=== PATIENT | male | born 1945 | race Caucasian/White ===

== ENCOUNTER 2017-05-28 22:11 | Inpatient (IN) | payer MEDICARE, OTHER ==
[~2017-05-28] VITALS: Ht 170.2 cm; Wt 66.0 kg
[~2017-05-28 22:11] MED LIST: LISI5TAB7 PO; METF10002 PO
[2017-05-28] MEDS ORDERED: SODIUM CHLORIDE 0.9% 1,000 ML IV ONE (22:30)
[2017-05-28] MEDS ORDERED: SODIUM CHLORIDE FLUSH 10ML SYR IVF ONE (22:30)
[2017-05-28 23:06] LABS: HEMATOCRIT 43.4 % (39.2-51.8); HEMOGLOBIN 14.4 g/dL (13.7-18.0); WHITE BLOOD COUNT 8.8 x10^3/uL (3.4-10)
[2017-05-28 23:17] LABS: ASPARTATE AMINO TRANSFERASE 24 U/L (15-37); BLOOD UREA NITROGEN 27 mg/dL (7-18)
[2017-05-28 23:23] LABS: IS PT STATUS REG ER OR PRE ER? YES
[2017-05-28] MEDS ORDERED: CLOP75TA52 PO (23:53)
[2017-05-28] MEDS ORDERED: GLIM2TAB2 PO (23:53)
[2017-05-28] MEDS ORDERED: ATOR-2 PO (23:53)
[2017-05-28] MEDS ORDERED: METO50TA82 PO (23:53)
[2017-05-28] MEDS ORDERED: LISI-170 PO (23:53)
[2017-05-28] MEDS ORDERED: AMLO10TA2 PO (23:53)
[2017-05-28] MEDS ORDERED: ALLO300T PO (23:53)
[2017-05-29] VITALS (7 sets, daily range): BP systolic 99–121; BP diastolic 68–80
[2017-05-29] MEDS: LEVETIRACETAM 500 MG in SODIUM CHLORIDE 0.9% 100 ML IV SCH ×2 (00:34→13:09)
[2017-05-29] MEDS ORDERED: ONDANSETRON 2MG/ML, 2ML IVPush PRN (04:00)
[2017-05-29 04:39] LABS: HEMATOCRIT 39.6 % (39.2-51.8); HEMOGLOBIN 13.1 g/dL (13.7-18.0); WHITE BLOOD COUNT 7.4 x10^3/uL (3.4-10)
[2017-05-29 04:50] LABS: BLOOD UREA NITROGEN 22 mg/dL (7-18)
[2017-05-29 04:54] LABS: ASPARTATE AMINO TRANSFERASE 21 U/L (15-37)
[2017-05-29] MEDS: SODIUM CHLORIDE 0.9% 1,000 ML IV SCH ×3 (05:52→22:36)
[2017-05-29] MEDS: INSULIN ASPART 100 UNITS/ML, PEN SQ-INSULIN SCH ×4 (07:00→21:18)
[2017-05-29] MEDS ORDERED: MORPHINE SULFATE 4 MG/ML, 1ML IV PRN (07:00)
[2017-05-29] MEDS: AMLODIPINE 5 MG TABLET PO SCH (09:00)
[2017-05-29] MEDS ORDERED: METOPROLOL TARTRATE 50 MG TABLET PO SCH (09:00)
[2017-05-29] MEDS: ALLOPURINOL 300 MG TABLET PO SCH ×2 (09:00→10:39)
[2017-05-29] MEDS: GLIMEPIRIDE 1 MG TABLET PO SCH ×2 (09:00→10:39)
[2017-05-29] MEDS ORDERED: LISINOPRIL 20 MG TABLET PO SCH (09:00)
[2017-05-29] MEDS: HYDROcodone/APAP 5/325 TABLET PO PRN (21:09)
[2017-05-29] MEDS: ATORVASTATIN 80 MG TABLET PO SCH (21:10)
[2017-05-30] MEDS: LEVETIRACETAM 500 MG in SODIUM CHLORIDE 0.9% 100 ML IV SCH ×2 (03:07→12:28)
[2017-05-30 04:57] LABS: BLOOD UREA NITROGEN 15 mg/dL (7-18)
[2017-05-30] MEDS: INSULIN ASPART 100 UNITS/ML, PEN SQ-INSULIN SCH ×4 (07:00→21:00)
[2017-05-30] MEDS: ALLOPURINOL 300 MG TABLET PO SCH (08:13)
[2017-05-30] MEDS: AMLODIPINE 5 MG TABLET PO SCH (08:13)
[2017-05-30] MEDS: GLIMEPIRIDE 1 MG TABLET PO SCH (08:13)
[2017-05-30] MEDS: SODIUM CHLORIDE 0.9% 1,000 ML IV SCH (09:39)
[2017-05-30 14:04] VITALS: BP 117/85
[2017-05-30] MEDS: METOPROLOL TARTRATE 50 MG TABLET PO SCH (17:31)
[2017-05-30] MEDS: ATORVASTATIN 80 MG TABLET PO SCH (21:21)
[2017-05-31] MEDS: LEVETIRACETAM 500 MG in SODIUM CHLORIDE 0.9% 100 ML IV SCH ×2 (00:58→13:53)
[2017-05-31 01:03] VITALS: BP 152/87
[2017-05-31 07:33] VITALS: BP 135/91
[2017-05-31] MEDS: GLIMEPIRIDE 1 MG TABLET PO SCH (08:38)
[2017-05-31] MEDS: AMLODIPINE 5 MG TABLET PO SCH (08:39)
[2017-05-31] MEDS: METOPROLOL TARTRATE 50 MG TABLET PO SCH ×2 (08:39→19:24)
[2017-05-31] MEDS: ALLOPURINOL 300 MG TABLET PO SCH (08:39)
[2017-05-31] MEDS: INSULIN ASPART 100 UNITS/ML, PEN SQ-INSULIN SCH ×4 (09:00→23:09)
[2017-05-31] MEDS ORDERED: FOLIC ACID 1 MG TABLET PO SCH (09:00)
[2017-05-31] MEDS ORDERED: CYANOCOBALAMIN 1,000 MCG TABLET PO SCH (09:00)
[2017-05-31 13:03] VITALS: BP 127/76
[2017-05-31 20:00] VITALS: BP 122/83
[2017-05-31] MEDS: ATORVASTATIN 80 MG TABLET PO SCH (23:08)
[2017-06-01] MEDS: LEVETIRACETAM 500 MG in SODIUM CHLORIDE 0.9% 100 ML IV SCH ×2 (01:24→12:52)
[2017-06-01 02:00] VITALS: BP 122/84
[2017-06-01 06:09] LABS: HEMATOCRIT 41.1 % (39.2-51.8); HEMOGLOBIN 13.7 g/dL (13.7-18.0); WHITE BLOOD COUNT 6.5 x10^3/uL (3.4-10)
[2017-06-01 06:28] LABS: BLOOD UREA NITROGEN 20 mg/dL (7-18)
[2017-06-01] MEDS: METOPROLOL TARTRATE 50 MG TABLET PO SCH ×2 (06:48→18:08)
[2017-06-01 07:02] VITALS: BP 137/88
[2017-06-01] MEDS: INSULIN ASPART 100 UNITS/ML, PEN SQ-INSULIN SCH ×4 (08:15→21:14)
[2017-06-01] MEDS: FOLIC ACID 1 MG TABLET PO SCH (08:59)
[2017-06-01] MEDS: GLIMEPIRIDE 1 MG TABLET PO SCH (08:59)
[2017-06-01] MEDS: AMLODIPINE 5 MG TABLET PO SCH (08:59)
[2017-06-01] MEDS: ALLOPURINOL 300 MG TABLET PO SCH (09:00)
[2017-06-01] MEDS: CYANOCOBALAMIN 1,000 MCG TABLET PO SCH (09:00)
[2017-06-01 12:50] VITALS: BP 118/77
[2017-06-01 20:00] VITALS: BP 145/88
[2017-06-01] MEDS: ATORVASTATIN 80 MG TABLET PO SCH (21:14)
[2017-06-02] MEDS: LEVETIRACETAM 500 MG in SODIUM CHLORIDE 0.9% 100 ML IV SCH ×3 (00:05→23:46)
[2017-06-02 02:00] VITALS: BP 141/90
[2017-06-02] MEDS: INSULIN ASPART 100 UNITS/ML, PEN SQ-INSULIN SCH ×4 (06:10→21:28)
[2017-06-02] MEDS: METOPROLOL TARTRATE 50 MG TABLET PO SCH ×2 (06:12→16:56)
[2017-06-02 06:52] VITALS: BP 129/88
[2017-06-02] MEDS: FOLIC ACID 1 MG TABLET PO SCH (09:00)
[2017-06-02] MEDS: CYANOCOBALAMIN 1,000 MCG TABLET PO SCH (09:00)
[2017-06-02] MEDS: ALLOPURINOL 300 MG TABLET PO SCH (09:00)
[2017-06-02] MEDS: GLIMEPIRIDE 1 MG TABLET PO SCH (09:00)
[2017-06-02] MEDS: AMLODIPINE 5 MG TABLET PO SCH (09:00)
[2017-06-02 12:35] VITALS: BP 115/78
[2017-06-02 12:53] LABS: BLOOD UREA NITROGEN 20 mg/dL (7-18)
[2017-06-02] MEDS ORDERED: ACETAMINOPHEN 650 MG/20.3 ML UDC PO PRN (15:00)
[2017-06-02] MEDS ORDERED: BISACODYL 10 MG SUPP PR PRN (15:00)
[2017-06-02] MEDS ORDERED: BUPIVACAINE/PF 0.5% ONE (17:11)
[2017-06-02] MEDS ORDERED: BACITRACIN 50,000 UNIT ONE (17:12)
[2017-06-02] MEDS ORDERED: THROMBIN 5,000 UNIT VIAL TP ONE (17:12)
[2017-06-02] MEDS ORDERED: EPINEPHRINE 1 MG/ML, 1ML ONE (17:12)
[2017-06-02] MEDS ORDERED: CEFUROXIME 1.5 GM ONE ×2 (17:17→17:26)
[2017-06-02] MEDS ORDERED: ONDANSETRON 2MG/ML, 2ML ONE (17:26)
[2017-06-02] MEDS ORDERED: NEOSTIGMINE 1 MG/ML, 10ML ONE (17:26)
[2017-06-02] MEDS ORDERED: GLYCOPYRROLATE 0.2MG/1ML, 5ML ONE (17:26)
[2017-06-02] MEDS ORDERED: SUCCINYLCHOLINE 20 MG/ML, 10ML ONE (17:26)
[2017-06-02] MEDS ORDERED: METOPROLOL 1 MG/ML, 5ML ONE (17:26)
[2017-06-02] MEDS ORDERED: ROCURONIUM 10 MG/ML ONE (17:26)
[2017-06-02] MEDS ORDERED: EPHEDRINE 50 MG/ML, 1ML ONE (17:26)
[2017-06-02] MEDS ORDERED: LIDOCAINE 2%, 10ML ONE (17:26)
[2017-06-02] MEDS ORDERED: FENTANYL PF 100 MCG/2ML ONE (17:26)
[2017-06-02] MEDS ORDERED: PROPOFOL 10 MG/ML, 20ML ONE (17:26)
[2017-06-02] MEDS ORDERED: HYDROmorphone 1 MG/ML, 1ML IV PRN (18:00)
[2017-06-02] MEDS ORDERED: ALBUTEROL SULFATE 2.5 MG/3 ML NPPB PRN (18:00)
[2017-06-02] MEDS ORDERED: LABETALOL 5MG/ML, 20ML IV PRN (18:00)
[2017-06-02] MEDS ORDERED: hydrALAzine 20 MG/ML, 1ML IV PRN (18:00)
[2017-06-02] MEDS ORDERED: METOPROLOL 1 MG/ML, 5ML IV PRN (18:00)
[2017-06-02] MEDS ORDERED: ACETAMINOPHEN 325 MG TABLET PO PRN (18:00)
[2017-06-02] MEDS ORDERED: FENTANYL PF 100 MCG/2ML IV PRN (18:00)
[2017-06-02] MEDS ORDERED: EPHEDRINE 50 MG/ML, 1ML IVPush PRN (18:00)
[2017-06-02] MEDS ORDERED: ONDANSETRON 2MG/ML, 2ML IVPush PRN (18:00)
[2017-06-02] MEDS: CEFAZOLIN PMX 1GM/50ML 50 ML IVPB SCH ×2 (19:22→22:59)
[2017-06-02] MEDS ORDERED: HYDROmorphone 1 MG/ML, 1ML ONE (20:29)
[2017-06-02] MEDS: HYDROmorphone 2 MG/ML, 1ML IVPush PRN (20:32)
[2017-06-02] MEDS: ATORVASTATIN 80 MG TABLET PO SCH (21:28)
[2017-06-03] MEDS: HYDROmorphone 2 MG/ML, 1ML IVPush PRN (04:21)
[2017-06-03 04:42] LABS: HEMATOCRIT 41.7 % (39.2-51.8); WHITE BLOOD COUNT 7.8 x10^3/uL (3.4-10)
[2017-06-03 04:58] LABS: BLOOD UREA NITROGEN 16 mg/dL (7-18)
[2017-06-03] MEDS: METOPROLOL TARTRATE 50 MG TABLET PO SCH ×2 (05:31→18:34)
[2017-06-03] MEDS: INSULIN ASPART 100 UNITS/ML, PEN SQ-INSULIN SCH ×4 (07:00→21:00)
[2017-06-03] MEDS: ALLOPURINOL 300 MG TABLET PO SCH (10:59)
[2017-06-03] MEDS: AMLODIPINE 5 MG TABLET PO SCH (10:59)
[2017-06-03] MEDS: GLIMEPIRIDE 1 MG TABLET PO SCH (10:59)
[2017-06-03] MEDS: SENNA/DOCUSATE TABLET PO SCH (10:59)
[2017-06-03] MEDS: CYANOCOBALAMIN 1,000 MCG TABLET PO SCH (10:59)
[2017-06-03] MEDS: FOLIC ACID 1 MG TABLET PO SCH (11:00)
[2017-06-03] MEDS: LEVETIRACETAM 500 MG in SODIUM CHLORIDE 0.9% 100 ML IV SCH ×2 (12:28→23:44)
[2017-06-03] MEDS: ATORVASTATIN 80 MG TABLET PO SCH (21:17)
[2017-06-04 04:38] LABS: HEMATOCRIT 38.5 % (39.2-51.8); HEMOGLOBIN 12.9 g/dL (13.7-18.0); WHITE BLOOD COUNT 6.8 x10^3/uL (3.4-10)
[2017-06-04 04:48] LABS: BLOOD UREA NITROGEN 22 mg/dL (7-18)
[2017-06-04 04:51] LABS: ASPARTATE AMINO TRANSFERASE 17 U/L (15-37)
[2017-06-04] MEDS: METOPROLOL TARTRATE 50 MG TABLET PO SCH ×2 (06:00→19:19)
[2017-06-04] MEDS: INSULIN ASPART 100 UNITS/ML, PEN SQ-INSULIN SCH ×4 (07:00→23:05)
[2017-06-04] MEDS: CYANOCOBALAMIN 1,000 MCG TABLET PO SCH (08:46)
[2017-06-04] MEDS: GLIMEPIRIDE 1 MG TABLET PO SCH (08:46)
[2017-06-04] MEDS: AMLODIPINE 5 MG TABLET PO SCH (08:46)
[2017-06-04] MEDS: SENNA/DOCUSATE TABLET PO SCH (08:47)
[2017-06-04] MEDS: FOLIC ACID 1 MG TABLET PO SCH (08:47)
[2017-06-04] MEDS: ALLOPURINOL 300 MG TABLET PO SCH (08:47)
[2017-06-04] MEDS: LEVETIRACETAM 500 MG in SODIUM CHLORIDE 0.9% 100 ML IV SCH (13:17)
[2017-06-04 16:14] VITALS: BP 128/82
[2017-06-04 20:32] VITALS: BP 125/82
[2017-06-04] MEDS: ATORVASTATIN 80 MG TABLET PO SCH (23:59)
[2017-06-05] MEDS: LEVETIRACETAM 500 MG in SODIUM CHLORIDE 0.9% 100 ML IV SCH ×2 (00:46→13:19)
[2017-06-05 01:38] VITALS: BP 127/87
[2017-06-05 05:20] LABS: HEMATOCRIT 39.2 % (39.2-51.8); HEMOGLOBIN 13.3 g/dL (13.7-18.0); WHITE BLOOD COUNT 7.6 x10^3/uL (3.4-10)
[2017-06-05 05:32] LABS: BLOOD UREA NITROGEN 20 mg/dL (7-18)
[2017-06-05 06:20] VITALS: BP 133/79
[2017-06-05] MEDS: INSULIN ASPART 100 UNITS/ML, PEN SQ-INSULIN SCH ×4 (06:41→21:00)
[2017-06-05] MEDS: METOPROLOL TARTRATE 50 MG TABLET PO SCH ×2 (06:42→17:39)
[2017-06-05] MEDS: GLIMEPIRIDE 1 MG TABLET PO SCH (09:00)
[2017-06-05] MEDS: CYANOCOBALAMIN 1,000 MCG TABLET PO SCH (09:00)
[2017-06-05] MEDS: FOLIC ACID 1 MG TABLET PO SCH (09:00)
[2017-06-05] MEDS: SENNA/DOCUSATE TABLET PO SCH (09:00)
[2017-06-05] MEDS: ALLOPURINOL 300 MG TABLET PO SCH (09:00)
[2017-06-05] MEDS: ONDANSETRON 2MG/ML, 2ML IVPush PRN ×2 (09:46→17:40)
[2017-06-05] MEDS: AMLODIPINE 5 MG TABLET PO SCH (09:52)
[2017-06-05 14:30] VITALS: BP 120/86
[2017-06-05 20:58] VITALS: BP 133/88
[2017-06-05] MEDS: ATORVASTATIN 80 MG TABLET PO SCH (21:23)
[2017-06-06] MEDS: LEVETIRACETAM 500 MG in SODIUM CHLORIDE 0.9% 100 ML IV SCH ×2 (00:46→12:48)
[2017-06-06 01:27] VITALS: BP 125/79
[2017-06-06] MEDS: MAGNESIUM HYDROXIDE 8%, 30ML UDC PO PRN (05:05)
[2017-06-06] MEDS: METOPROLOL TARTRATE 50 MG TABLET PO SCH ×2 (05:06→17:15)
[2017-06-06 05:15] VITALS: BP 124/77
[2017-06-06] MEDS: INSULIN ASPART 100 UNITS/ML, PEN SQ-INSULIN SCH ×4 (05:34→21:00)
[2017-06-06 07:38] VITALS: BP 120/79
[2017-06-06] MEDS: CYANOCOBALAMIN 1,000 MCG TABLET PO SCH (08:29)
[2017-06-06] MEDS: GLIMEPIRIDE 1 MG TABLET PO SCH (08:29)
[2017-06-06] MEDS: AMLODIPINE 5 MG TABLET PO SCH (08:29)
[2017-06-06] MEDS: SENNA/DOCUSATE TABLET PO SCH (08:29)
[2017-06-06] MEDS: FOLIC ACID 1 MG TABLET PO SCH (08:29)
[2017-06-06] MEDS: ALLOPURINOL 300 MG TABLET PO SCH (08:30)
[2017-06-06 16:52] VITALS: BP 126/81
[2017-06-06 18:38] VITALS: BP 108/64
[2017-06-06] MEDS: ATORVASTATIN 80 MG TABLET PO SCH (22:34)
[2017-06-07] MEDS: LEVETIRACETAM 500 MG in SODIUM CHLORIDE 0.9% 100 ML IV SCH ×2 (00:14→13:11)
[2017-06-07 02:10] VITALS: BP 123/86
[2017-06-07] MEDS: HYDROcodone/APAP 5/325 TABLET PO PRN (02:45)
[2017-06-07] MEDS: MAGNESIUM HYDROXIDE 8%, 30ML UDC PO PRN (02:45)
[2017-06-07] MEDS: METOPROLOL TARTRATE 50 MG TABLET PO SCH ×2 (05:35→17:00)
[2017-06-07 05:36] VITALS: BP 111/81
[2017-06-07] MEDS: INSULIN ASPART 100 UNITS/ML, PEN SQ-INSULIN SCH ×4 (06:58→20:32)
[2017-06-07 07:58] VITALS: BP 116/76
[2017-06-07] MEDS: GLIMEPIRIDE 1 MG TABLET PO SCH (08:27)
[2017-06-07] MEDS: CYANOCOBALAMIN 1,000 MCG TABLET PO SCH (08:27)
[2017-06-07] MEDS: FOLIC ACID 1 MG TABLET PO SCH (08:27)
[2017-06-07] MEDS: SENNA/DOCUSATE TABLET PO SCH (08:27)
[2017-06-07] MEDS: AMLODIPINE 5 MG TABLET PO SCH (08:27)
[2017-06-07] MEDS: ALLOPURINOL 300 MG TABLET PO SCH (08:27)
[2017-06-07 13:10] VITALS: BP 113/71
[2017-06-07] MEDS ORDERED: MAGNESIUM HYDROXIDE 8%, 30ML UDC PO PRN (16:00)
[2017-06-07] MEDS ORDERED: BISACODYL 10 MG SUPP PR PRN (16:00)
[2017-06-07] MEDS ORDERED: ONDANSETRON 2MG/ML, 2ML IVPush PRN (16:00)
[2017-06-07 19:35] VITALS: BP 116/81
[2017-06-07] MEDS: ATORVASTATIN 80 MG TABLET PO SCH (20:33)
[2017-06-08] MEDS: LEVETIRACETAM 500 MG in SODIUM CHLORIDE 0.9% 100 ML IV SCH ×2 (00:51→13:29)
[2017-06-08 01:49] VITALS: BP 111/73
[2017-06-08] MEDS: METOPROLOL TARTRATE 50 MG TABLET PO SCH ×2 (06:00→16:59)
[2017-06-08] MEDS: INSULIN ASPART 100 UNITS/ML, PEN SQ-INSULIN SCH ×4 (06:12→21:00)
[2017-06-08 07:20] VITALS: BP 104/71
[2017-06-08] MEDS: FOLIC ACID 1 MG TABLET PO SCH (08:34)
[2017-06-08] MEDS: ALLOPURINOL 300 MG TABLET PO SCH (08:34)
[2017-06-08] MEDS: GLIMEPIRIDE 1 MG TABLET PO SCH (08:34)
[2017-06-08] MEDS: SENNA/DOCUSATE TABLET PO SCH (08:35)
[2017-06-08] MEDS: AMLODIPINE 5 MG TABLET PO SCH (08:35)
[2017-06-08] MEDS: CYANOCOBALAMIN 1,000 MCG TABLET PO SCH (08:35)
[2017-06-08 15:10] VITALS: BP 110/81
[2017-06-08 19:08] VITALS: BP 96/64
[2017-06-08] MEDS: ATORVASTATIN 80 MG TABLET PO SCH (21:12)
[2017-06-09] MEDS: LEVETIRACETAM 500 MG in SODIUM CHLORIDE 0.9% 100 ML IV SCH ×2 (01:11→12:56)
[2017-06-09 02:54] VITALS: BP 108/71
[2017-06-09 06:30] VITALS: BP 115/80
[2017-06-09] MEDS: METOPROLOL TARTRATE 50 MG TABLET PO SCH (06:35)
[2017-06-09] MEDS: INSULIN ASPART 100 UNITS/ML, PEN SQ-INSULIN SCH ×2 (07:00→11:00)
[2017-06-09 07:30] VITALS: BP 117/79
[2017-06-09] MEDS: CYANOCOBALAMIN 1,000 MCG TABLET PO SCH (09:22)
[2017-06-09] MEDS: GLIMEPIRIDE 1 MG TABLET PO SCH (09:22)
[2017-06-09] MEDS: ALLOPURINOL 300 MG TABLET PO SCH (09:22)
[2017-06-09] MEDS: FOLIC ACID 1 MG TABLET PO SCH (09:22)
[2017-06-09] MEDS: SENNA/DOCUSATE TABLET PO SCH (09:22)
[2017-06-09] MEDS: AMLODIPINE 5 MG TABLET PO SCH (09:22)
[2017-06-09] MEDS ORDERED: LEVE500T53 PO (12:52)
[2017-06-09 13:53] VITALS: BP 111/73
== END 2017-06-09 16:19 | DRG 25 ==
LOC: ED 22:33 → EDIP 05-29 00:50 → CCU 05-29 04:23 → 4EST 05-30 13:04 → CCU 06-02 19:30 → 4NOR 06-04 12:43
PROVIDERS: ADMIT Hospitalist; ATTEND Hospitalist
PROC: 30233R1 Transfusion of Nonautologous Platelets into Peripheral Vein, Percutaneous Approach (ICD-10-PCS; 2017-05-29)
PROC: 0T9B70Z Drainage of Bladder with Drainage Device, Via Natural or Artificial Opening (ICD-10-PCS; 2017-06-02)
PROC: 009430Z Drainage of Intracranial Subdural Space with Drainage Device, Percutaneous Approach (ICD-10-PCS; principal; 2017-06-02 17:00)
DX: S06.5X0A Traumatic subdural hemorrhage without loss of consciousness, initial encounter (principal); G93.40 Encephalopathy, unspecified; E11.9 Type 2 diabetes mellitus without complications; I69.351 Hemiplegia and hemiparesis following cerebral infarction affecting right dominant side; I10 Essential (primary) hypertension; I35.8 Other nonrheumatic aortic valve disorders; I34.0 Nonrheumatic mitral (valve) insufficiency; W18.39XA Other fall on same level, initial encounter; M10.9 Gout, unspecified; R29.6 Repeated falls; Z79.02 Long term (current) use of antithrombotics/antiplatelets; Z90.49 Acquired absence of other specified parts of digestive tract; Y93.89 Activity, other specified; Y92.89 Other specified places as the place of occurrence of the external cause; Y99.8 Other external cause status
CPT/HCPCS: 36415; 70450; 74230; 80048; 80053; 80061; 81003; 82607; 82746; 82962; 83036; 83735; 84443; 84484; 85025; 85610; 85730; 86850; 86900; 87081; 93005; 93306; 95819; C1713; J0171; J0690; J0697; J1170; J1815; J1953; J2405; J2704; J2710; J3010; J3490; 92523-GN; J0330; J7030; P9035

== ENCOUNTER → 2017-06-30 | Outpatient (CLI) | payer MEDICARE ==
[~2017-06-30] MED LIST changes: +ALLO300T PO; +AMLO10TA2 PO; +ATOR-2 PO; +CLOP75TA52 PO; +GLIM2TAB2 PO; +LEVE500T53 PO; +LISI-170 PO; +METO50TA82 PO
== END | disposition home or self-care (01) ==
LOC: CFH 08:03
PROVIDERS: ATTEND Physician Assistant Surgical
DX: G31.9 Degenerative disease of nervous system, unspecified (principal); I62.00 Nontraumatic subdural hemorrhage, unspecified
CPT/HCPCS: 70450

== ENCOUNTER 2018-06-16 16:59 | Inpatient (IN) | payer MEDICARE, MEDICAID ==
[~2018-06-16] VITALS: Ht 167.6 cm; Wt 72.1 kg
[~2018-06-16 16:59] MED LIST changes: -AMLO10TA2 PO; +AMLO10TA6 PO
[2018-06-16 18:49] LABS: BASOPHILS # (AUTO) 0.03 x10^3/uL (0-0.1); BASOPHILS % (AUTO) 0 % (0-1); EOSINOPHILS # (AUTO) 0.18 x10^3/uL (0-0.4); EOSINOPHILS % (AUTO) 3 % (1-7); LYMPHOCYTES # (AUTO) 1.99 x10^3/uL (1-3.4); LYMPHOCYTES % (AUTO) 30 % (22-44); MD NO; MEAN CORPUSCULAR HEMOGLOBIN 33.8 pg (27.5-34.5); MEAN CORPUSCULAR HGB CONC 33.2 g/dL (33.2-36.2); MEAN PLATELET VOLUME 8.4 fL (7.4-10.4); MONOCYTES # (AUTO) 0.66 x10^3/uL (0.2-0.8); MONOCYTES % (AUTO) 10 % (2-9); NEUTROPHILS # (AUTO) 3.75 x10^3/uL (1.8-6.8); NEUTROPHILS % (AUTO) 57 % (42-75); PLATELET COUNT 170 x10^3/uL (130-400); RED CELL DISTRIBUTION WIDTH 14.1 % (9.4-14.8)
[2018-06-16 18:55] LABS: ALBUMIN 3.5 g/dL (3.4-5.0); ANION GAP 11 mmol/L (5-15); CALCIUM 9.1 mg/dL (8.5-10.1); CHLORIDE 108 mmol/L (98-107)
[2018-06-16 18:57] LABS: ALANINE AMINOTRANSFERASE 41 U/L (12-78); ALKALINE PHOSPHATASE 106 U/L (45-117); BILIRUBIN,TOTAL 0.5 mg/dL (0.2-1.0); CREATININE 1.26 mg/dL (0.7-1.3); TOTAL PROTEIN 8.4 g/dL (6.4-8.2)
[2018-06-16 19:00] LABS: HEMOGLOBIN A1C 7.2 % (4.2-6.3)
[2018-06-16] MEDS ORDERED: SODIUM CHLORIDE FLUSH 10ML SYR IVF PRN (20:00)
[2018-06-16] MEDS ORDERED: ACETAMINOPHEN 325 MG TABLET PO PRN (21:30)
[2018-06-16] MEDS ORDERED: hydrALAzine 20 MG/ML, 1ML IVPush PRN (21:30)
[2018-06-16] MEDS ORDERED: ONDANSETRON ODT 4 MG PO PRN (21:30)
[2018-06-16] MEDS ORDERED: DOCUSATE 100 MG CAPSULE PO PRN (21:30)
[2018-06-16 21:47] VITALS: BP 136/93
[2018-06-16] MEDS ORDERED: HEPARIN 5,000 UNITS/ML, 1ML IV ONE (22:00)
[2018-06-16] MEDS: HEPARIN 25,000 UNITS/500ML PMX 500 ML IV PRN (23:22)
[2018-06-17 01:39] VITALS: BP 128/88
[2018-06-17 07:00] VITALS: BP 119/78
[2018-06-17 12:45] LABS: ANION GAP 7 mmol/L (5-15); CALCIUM 8.5 mg/dL (8.5-10.1); CHLORIDE 109 mmol/L (98-107); CREATININE 1.43 mg/dL (0.7-1.3)
[2018-06-17 12:48] LABS: INTERNATIONAL NORMALIZED RATIO 1.04 (0.93-1.1); PROTHROMBIN TIME 10.7 Seconds (9.6-11.5)
[2018-06-17 12:51] LABS: BASOPHILS # (AUTO) 0.03 x10^3/uL (0-0.1); BASOPHILS % (AUTO) 1 % (0-1); EOSINOPHILS # (AUTO) 0.15 x10^3/uL (0-0.4); EOSINOPHILS % (AUTO) 3 % (1-7); LYMPHOCYTES # (AUTO) 1.78 x10^3/uL (1-3.4); LYMPHOCYTES % (AUTO) 33 % (22-44); MD NO; MEAN CORPUSCULAR HEMOGLOBIN 34.1 pg (27.5-34.5); MEAN CORPUSCULAR HGB CONC 33.8 g/dL (33.2-36.2); MEAN CORPUSCULAR VOLUME 100.9 fL (81-97); MEAN PLATELET VOLUME 8.3 fL (7.4-10.4); MONOCYTES # (AUTO) 0.41 x10^3/uL (0.2-0.8); MONOCYTES % (AUTO) 8 % (2-9); NEUTROPHILS # (AUTO) 3.04 x10^3/uL (1.8-6.8); NEUTROPHILS % (AUTO) 56 % (42-75); PLATELET COUNT 176 x10^3/uL (130-400); RED BLOOD COUNT 4.37 x10^6/uL (4.38-5.82); RED CELL DISTRIBUTION WIDTH 14.3 % (9.4-14.8)
[2018-06-17 13:16] VITALS: BP 127/87
[2018-06-17] MEDS: HEPARIN 5,000 UNITS/ML, 1ML IV PRN (15:44)
[2018-06-17] MEDS ORDERED: SODIUM CHLORIDE 0.9% 1,000 ML IV SCH (17:30)
[2018-06-17] MEDS ORDERED: WARFARIN 5 MG TABLET PO-COUM ONE (18:00)
[2018-06-17 19:38] VITALS: BP 130/89
[2018-06-18 01:08] VITALS: BP 132/84
[2018-06-18 03:38] LABS: BASOPHILS # (AUTO) 0.04 x10^3/uL (0-0.1); BASOPHILS % (AUTO) 1 % (0-1); EOSINOPHILS # (AUTO) 0.21 x10^3/uL (0-0.4); EOSINOPHILS % (AUTO) 4 % (1-7); LYMPHOCYTES # (AUTO) 1.94 x10^3/uL (1-3.4); LYMPHOCYTES % (AUTO) 37 % (22-44); MD NO; MEAN CORPUSCULAR HEMOGLOBIN 34.4 pg (27.5-34.5); MEAN CORPUSCULAR HGB CONC 34.2 g/dL (33.2-36.2); MEAN CORPUSCULAR VOLUME 100.7 fL (81-97); MEAN PLATELET VOLUME 7.8 fL (7.4-10.4); MONOCYTES % (AUTO) 10 % (2-9); NEUTROPHILS # (AUTO) 2.57 x10^3/uL (1.8-6.8); NEUTROPHILS % (AUTO) 49 % (42-75); PLATELET COUNT 171 x10^3/uL (130-400); RED BLOOD COUNT 4.01 x10^6/uL (4.38-5.82); RED CELL DISTRIBUTION WIDTH 14.1 % (9.4-14.8)
[2018-06-18 03:46] LABS: INTERNATIONAL NORMALIZED RATIO 1.04 (0.93-1.1); PROTHROMBIN TIME 10.7 Seconds (9.6-11.5)
[2018-06-18 03:48] LABS: ANION GAP 9 mmol/L (5-15); CALCIUM 8.1 mg/dL (8.5-10.1); CHLORIDE 113 mmol/L (98-107); CREATININE 1.15 mg/dL (0.7-1.3)
[2018-06-18] MEDS: HEPARIN 5,000 UNITS/ML, 1ML IV PRN (03:57)
[2018-06-18] MEDS: HEPARIN 25,000 UNITS/500ML PMX 500 ML IV PRN (04:03)
[2018-06-18 07:06] VITALS: BP 128/87
[2018-06-18 13:19] VITALS: BP 130/89
[2018-06-18] MEDS: INSULIN LISPRO 100 UNITS/ML, PEN SQ-INSULIN SCH ×2 (16:00→20:47)
[2018-06-18] MEDS ORDERED: WARFARIN 5 MG TABLET PO-COUM ONE (18:00)
[2018-06-18 20:09] VITALS: BP 129/91
[2018-06-18 20:40] VITALS: BP 132/89
[2018-06-19 00:36] VITALS: BP 128/85
[2018-06-19] MEDS: HEPARIN 25,000 UNITS/500ML PMX 500 ML IV PRN (03:48)
[2018-06-19 06:23] LABS: INTERNATIONAL NORMALIZED RATIO 1.37 (0.93-1.1)
[2018-06-19] MEDS: INSULIN LISPRO 100 UNITS/ML, PEN SQ-INSULIN SCH ×4 (07:00→21:13)
[2018-06-19 07:55] VITALS: BP 114/82
[2018-06-19 13:01] VITALS: BP 135/95
[2018-06-19] MEDS ORDERED: WARFARIN 5 MG TABLET PO-COUM ONE (18:00)
[2018-06-19 19:40] VITALS: BP 130/82
[2018-06-20 02:06] VITALS: BP 130/87
[2018-06-20] MEDS: HEPARIN 25,000 UNITS/500ML PMX 500 ML IV PRN (02:14)
[2018-06-20 05:59] LABS: INTERNATIONAL NORMALIZED RATIO 2.16 (0.93-1.1); PROTHROMBIN TIME 21.9 Seconds (9.6-11.5)
[2018-06-20 07:26] VITALS: BP 110/78
[2018-06-20] MEDS: INSULIN LISPRO 100 UNITS/ML, PEN SQ-INSULIN SCH ×4 (08:15→21:54)
[2018-06-20 14:22] VITALS: BP 124/89
[2018-06-20] MEDS ORDERED: WARFARIN 5 MG TABLET PO-COUM ONE (18:00)
[2018-06-20 18:57] VITALS: BP 146/92
[2018-06-21 01:24] VITALS: BP 118/84
[2018-06-21] MEDS: HEPARIN 25,000 UNITS/500ML PMX 500 ML IV PRN (01:47)
[2018-06-21 06:08] LABS: INTERNATIONAL NORMALIZED RATIO 3.45 (0.93-1.1); PROTHROMBIN TIME 34.7 Seconds (9.6-11.5)
[2018-06-21 06:48] VITALS: BP 119/80
[2018-06-21] MEDS: INSULIN LISPRO 100 UNITS/ML, PEN SQ-INSULIN SCH ×2 (07:00→11:27)
[2018-06-21] MEDS ORDERED: HOLD COUMADIN MC PRN (08:00)
[2018-06-21 13:08] VITALS: BP 115/82
== END 2018-06-21 16:43 | disposition home health service (06) | DRG 300 ==
LOC: ED 18:28 → EDIP 20:00 → 3NE 21:35
PROVIDERS: ADMIT Internal Medicine; ATTEND Internal Medicine
DX: I82.411 Acute embolism and thrombosis of right femoral vein (principal); I69.351 Hemiplegia and hemiparesis following cerebral infarction affecting right dominant side; I10 Essential (primary) hypertension; E11.9 Type 2 diabetes mellitus without complications; M10.9 Gout, unspecified; M79.89 Other specified soft tissue disorders; R41.89 Other symptoms and signs involving cognitive functions and awareness; I82.431 Acute embolism and thrombosis of right popliteal vein; I82.441 Acute embolism and thrombosis of right tibial vein; Z82.49 Family history of ischemic heart disease and other diseases of the circulatory system; Z87.828 Personal history of other (healed) physical injury and trauma; Z90.49 Acquired absence of other specified parts of digestive tract; Z23 Encounter for immunization
CPT/HCPCS: 36415; 70450; 80048; 80053; 80164; 82962; 83036; 83880; 85025; 85520; 85610; 90656; 93005; 99285; G0378; J1644; J1815; J7030

== ENCOUNTER 2018-07-17 19:48 | Emergency (ER) | payer MEDICARE, MEDICAID ==
[~2018-07-17] VITALS: Ht 165.1 cm; Wt 69.0 kg
[2018-07-17] MEDS ORDERED: FLUORESCEIN OPHTHALMIC 1 MG STRIP LEFTEYE ONE (20:30)
[2018-07-17] MEDS ORDERED: PROPARACAINE OPHTH 0.5%, 15ML LEFTEYE ONE (20:30)
[2018-07-17 20:40] LABS: BASOPHILS # (AUTO) 0.02 x10^3/uL (0-0.1); BASOPHILS % (AUTO) 0 % (0-1); EOSINOPHILS # (AUTO) 0.23 x10^3/uL (0-0.4); EOSINOPHILS % (AUTO) 4 % (1-7); LYMPHOCYTES % (AUTO) 37 % (22-44); MD NO; MEAN CORPUSCULAR HEMOGLOBIN 34.6 pg (27.5-34.5); MEAN CORPUSCULAR HGB CONC 33.9 g/dL (33.2-36.2); MEAN CORPUSCULAR VOLUME 102.1 fL (81-97); MEAN PLATELET VOLUME 8.7 fL (7.4-10.4); MONOCYTES % (AUTO) 11 % (2-9); NEUTROPHILS # (AUTO) 2.72 x10^3/uL (1.8-6.8); NEUTROPHILS % (AUTO) 48 % (42-75); PLATELET COUNT 193 x10^3/uL (130-400); RED BLOOD COUNT 4.46 x10^6/uL (4.38-5.82); RED CELL DISTRIBUTION WIDTH 13.9 % (9.4-14.8)
[2018-07-17 20:48] LABS: INTERNATIONAL NORMALIZED RATIO 1.1 (0.93-1.1); PROTHROMBIN TIME 11.4 Seconds (9.6-11.5)
[2018-07-17 20:51] LABS: ALANINE AMINOTRANSFERASE 31 U/L (12-78); ALBUMIN 3.2 g/dL (3.4-5.0); ANION GAP 5 mmol/L (5-15); CALCIUM 8.3 mg/dL (8.5-10.1); CHLORIDE 108 mmol/L (98-107); CREATININE 1.49 mg/dL (0.7-1.3)
[2018-07-17 20:55] LABS: ALKALINE PHOSPHATASE 87 U/L (45-117); BILIRUBIN,TOTAL 0.4 mg/dL (0.2-1.0); TOTAL PROTEIN 7.2 g/dL (6.4-8.2)
[2018-07-17] MEDS ORDERED: PROPARACAINE OPHTH 0.5%, 15ML ONE (21:09)
[2018-07-17 22:01] VITALS: BP 121/82
== END 2018-07-17 22:21 | disposition home or self-care (01) ==
LOC: ED 20:49
DX: I82.5Z1 Chronic embolism and thrombosis of unspecified deep veins of right distal lower extremity (principal); H10.32 Unspecified acute conjunctivitis, left eye; S05.02XA Injury of conjunctiva and corneal abrasion without foreign body, left eye, initial encounter; E11.9 Type 2 diabetes mellitus without complications; I10 Essential (primary) hypertension; Z86.73 Personal history of transient ischemic attack (TIA), and cerebral infarction without residual deficits; Z99.3 Dependence on wheelchair; X58.XXXA Exposure to other specified factors, initial encounter; Y93.89 Activity, other specified; Y99.8 Other external cause status; Y92.89 Other specified places as the place of occurrence of the external cause
CPT/HCPCS: 36415; 80053; 83880; 84550; 85025; 85610; 99285

== ENCOUNTER 2019-02-13 13:00 | Inpatient (IN) | payer MEDICARE, MEDICAID ==
[~2019-02-13] VITALS: Ht 165.1 cm; Wt 65.3 kg
[~2019-02-13 13:00] MED LIST changes: -AMLO10TA6 PO; +AMLO10TA8 PO
[2019-02-13 14:15] LABS: ALANINE AMINOTRANSFERASE 33 U/L (12-78); ALBUMIN 3.6 g/dL (3.4-5.0); ANION GAP 8 mmol/L (5-15); CALCIUM 8.8 mg/dL (8.5-10.1); CHLORIDE 110 mmol/L (98-107); CREATININE 1.29 mg/dL (0.7-1.3); MEAN CORPUSCULAR HEMOGLOBIN 33.4 pg (27.5-34.5); MEAN CORPUSCULAR HGB CONC 32.3 g/dL (33.2-36.2); MEAN CORPUSCULAR VOLUME 103.5 fL (81-97); MEAN PLATELET VOLUME 8.4 fL (7.4-10.4); PLATELET COUNT 183 x10^3/uL (130-400); RED BLOOD COUNT 4.76 x10^6/uL (4.38-5.82); RED CELL DISTRIBUTION WIDTH 14.8 % (9.4-14.8)
[2019-02-13 14:19] LABS: ALKALINE PHOSPHATASE 77 U/L (45-117); BILIRUBIN,TOTAL 0.7 mg/dL (0.2-1.0); TOTAL PROTEIN 7.7 g/dL (6.4-8.2); TROPONIN I < 0.015 ng/mL (0.000-0.045)
[2019-02-13 14:47] LABS: BASOPHILS # (AUTO) 0.01 x10^3/uL (0-0.1); BASOPHILS % (AUTO) 0 % (0-1); EOSINOPHILS # (AUTO) 0.03 x10^3/uL (0-0.4); EOSINOPHILS % (AUTO) 0 % (1-7); LYMPHOCYTES # (AUTO) 1.88 x10^3/uL (1-3.4); LYMPHOCYTES % (AUTO) 16 % (22-44); MD SCAN; MONOCYTES # (AUTO) 0.55 x10^3/uL (0.2-0.8); MONOCYTES % (AUTO) 5 % (2-9); NEUTROPHILS # (AUTO) 9.44 x10^3/uL (1.8-6.8); NEUTROPHILS % (AUTO) 79 % (42-75)
--- NOTE | 2019-02-13 14:59 | NUR ---
LINEWORKER: PT TO ROOM FROM LOBBY, VIA W/C
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
[2019-02-13] MEDS ORDERED: SPIR25TA5 PO (15:06)
[2019-02-13] MEDS ORDERED: RIVA15TA PO (15:07)
[2019-02-13] MEDS ORDERED: METF500T27 PO (15:08)
[2019-02-13] MEDS ORDERED: D5%-0.45NACL+KCL 20MEQ 1,000 ML IV SCH (16:00)
[2019-02-13] MEDS ORDERED: PLEASE ENTER WEIGHT MC SCH (16:00)
[2019-02-13] MEDS ORDERED: SODIUM CHLORIDE 0.9% 1,000 ML IV SCH (16:03)
[2019-02-13] MEDS ORDERED: hydrALAzine 20 MG/ML, 1ML IVPush PRN (16:30)
--- NOTE | 2019-02-13 17:08 | NUR ---
REPORT TO JAVIER RN, PLAN OF CARE
[2019-02-13 17:16] LABS: HEMOGLOBIN A1C 6.8 % (4.2-6.3)
[2019-02-13 17:46] VITALS: BP 117/80
[2019-02-13 18:47] VITALS: BP 114/76
[2019-02-13] MEDS: INSULIN LISPRO 100 UNITS/ML, PEN SQ-INSULIN SCH (19:56)
[2019-02-13] MEDS: ENOXAPARIN 40 MG/0.4 ML SQ SCH (20:13)
[2019-02-13] MEDS: METOPROLOL TARTRATE 50 MG TABLET PO SCH (20:24)
[2019-02-13] MEDS: FAMOTIDINE 20 MG/2 ML IVPush SCH (20:24)
[2019-02-13] MEDS: ATORVASTATIN 80 MG TABLET PO SCH (20:24)
[2019-02-13] MEDS: LEVETIRACETAM 500 MG in SODIUM CHLORIDE 0.9% 100 ML IV SCH (20:25)
[2019-02-13] MEDS ORDERED: RIVAROXABAN 15 MG TABLET PO SCH (21:00)
[2019-02-13] MEDS ORDERED: LEVETIRACETAM 500 MG TABLET PO SCH (21:00)
[2019-02-14 00:29] VITALS: BP 119/82
[2019-02-14 03:15] LABS: MICROSCOPIC AUTO
[2019-02-14 03:17] LABS: CULTURE INDICATED? NO
[2019-02-14 07:00] VITALS: BP 119/80
[2019-02-14] MEDS: INSULIN LISPRO 100 UNITS/ML, PEN SQ-INSULIN SCH ×4 (07:00→20:40)
[2019-02-14 07:09] LABS: BASOPHILS # (AUTO) 0.03 x10^3/uL (0-0.1); BASOPHILS % (AUTO) 0 % (0-1); EOSINOPHILS # (AUTO) 0.15 x10^3/uL (0-0.4); EOSINOPHILS % (AUTO) 2 % (1-7); LYMPHOCYTES % (AUTO) 18 % (22-44); MD NO; MEAN CORPUSCULAR HEMOGLOBIN 34.1 pg (27.5-34.5); MEAN CORPUSCULAR HGB CONC 32.6 g/dL (33.2-36.2); MEAN CORPUSCULAR VOLUME 104.4 fL (81-97); MEAN PLATELET VOLUME 9.4 fL (7.4-10.4); MONOCYTES # (AUTO) 0.63 x10^3/uL (0.2-0.8); MONOCYTES % (AUTO) 7 % (2-9); NEUTROPHILS # (AUTO) 6.52 x10^3/uL (1.8-6.8); NEUTROPHILS % (AUTO) 73 % (42-75); PLATELET COUNT 167 x10^3/uL (130-400); RED BLOOD COUNT 4.26 x10^6/uL (4.38-5.82); RED CELL DISTRIBUTION WIDTH 14.8 % (9.4-14.8)
[2019-02-14 07:11] LABS: ALBUMIN 3.2 g/dL (3.4-5.0); ANION GAP 8 mmol/L (5-15); CALCIUM 8.4 mg/dL (8.5-10.1); CHLORIDE 111 mmol/L (98-107)
[2019-02-14 07:14] LABS: ALANINE AMINOTRANSFERASE 28 U/L (12-78); ALKALINE PHOSPHATASE 74 U/L (45-117); BILIRUBIN,TOTAL 0.7 mg/dL (0.2-1.0); CREATININE 1.05 mg/dL (0.7-1.3); TOTAL PROTEIN 6.9 g/dL (6.4-8.2)
[2019-02-14] MEDS: METOPROLOL TARTRATE 50 MG TABLET PO SCH ×2 (08:18→20:40)
[2019-02-14] MEDS: ALLOPURINOL 300 MG TABLET PO SCH (08:18)
[2019-02-14] MEDS: FAMOTIDINE 20 MG/2 ML IVPush SCH ×2 (08:18→20:40)
[2019-02-14] MEDS ORDERED: AMLODIPINE 10 MG TAB PO SCH (09:00)
[2019-02-14] MEDS: LEVETIRACETAM 500 MG in SODIUM CHLORIDE 0.9% 100 ML IV SCH ×2 (09:51→20:40)
--- NOTE | 2019-02-14 10:19 | NUR ---
REC: NPO pending MBS today Addendum: 02/14/19 at 1019 by Carina MUNOZ Amended: Links added.
[2019-02-14 14:01] VITALS: BP 119/79
[2019-02-14] MEDS: SODIUM CHLORIDE 0.9% 1,000 ML IV SCH (16:03)
--- NOTE | 2019-02-14 17:06 | NUR ---
REC: NPO/NGT; swallowing precautions/recommendations posted in patient's room Addendum: 02/14/19 at 1706 by Carina MUNOZ Amended: Links added.
[2019-02-14 18:27] VITALS: BP 143/89
[2019-02-14] MEDS: ENOXAPARIN 40 MG/0.4 ML SQ SCH (20:40)
[2019-02-14] MEDS: ATORVASTATIN 80 MG TABLET PO SCH (20:40)
[2019-02-15 01:17] VITALS: BP 124/84
[2019-02-15] MEDS: SODIUM CHLORIDE 0.9% 1,000 ML IV SCH ×2 (01:57→19:42)
[2019-02-15 06:40] VITALS: BP 135/86
[2019-02-15] MEDS: INSULIN LISPRO 100 UNITS/ML, PEN SQ-INSULIN SCH ×4 (07:00→19:41)
[2019-02-15] MEDS: LACTOBACILLUS CHEW TABLET PO SCH ×3 (09:00→19:42)
[2019-02-15] MEDS: ALLOPURINOL 300 MG TABLET PO SCH (09:00)
[2019-02-15] MEDS: ENOXAPARIN 60 MG/0.6 ML SQ SCH ×2 (09:06→19:42)
[2019-02-15 13:05] VITALS: BP 130/86
[2019-02-15] MEDS: CARVEDILOL 12.5 MG TABLET PO SCH (18:00)
[2019-02-15 19:31] VITALS: BP 139/71
[2019-02-15] MEDS: ATORVASTATIN 80 MG TABLET PO SCH (19:43)
[2019-02-15] MEDS ORDERED: ENOXAPARIN 60 MG/0.6 ML SQ SCH (20:30)
[2019-02-15 20:35] VITALS: BP 119/81
[2019-02-16 01:25] VITALS: BP 147/90
[2019-02-16] MEDS: CARVEDILOL 12.5 MG TABLET PO SCH ×2 (05:26→15:55)
[2019-02-16 06:29] VITALS: BP 146/99
[2019-02-16] MEDS: INSULIN LISPRO 100 UNITS/ML, PEN SQ-INSULIN SCH ×4 (07:00→22:26)
[2019-02-16] MEDS: LACTOBACILLUS CHEW TABLET PO SCH ×3 (07:59→19:11)
[2019-02-16] MEDS: ALLOPURINOL 300 MG TABLET PO SCH (07:59)
[2019-02-16] MEDS: ENOXAPARIN 60 MG/0.6 ML SQ SCH ×2 (08:05→22:06)
[2019-02-16 13:40] VITALS: BP 122/95
[2019-02-16] MEDS: SODIUM CHLORIDE 0.9% 1,000 ML IV SCH (15:55)
[2019-02-16 18:31] VITALS: BP 133/88
[2019-02-16] MEDS: ATORVASTATIN 80 MG TABLET PO SCH (19:12)
[2019-02-17 00:18] VITALS: BP 131/92
[2019-02-17] MEDS: CARVEDILOL 12.5 MG TABLET PO SCH ×2 (04:46→16:44)
[2019-02-17 05:33] LABS: INTERNATIONAL NORMALIZED RATIO 1.01 (0.93-1.1); PROTHROMBIN TIME 10.6 Seconds (9.6-11.5)
[2019-02-17 05:37] LABS: CREATININE 1.01 mg/dL (0.7-1.3)
[2019-02-17 05:39] LABS: MEAN CORPUSCULAR HEMOGLOBIN 33.7 pg (27.5-34.5); MEAN CORPUSCULAR HGB CONC 32.7 g/dL (33.2-36.2); PLATELET COUNT 203 x10^3/uL (130-400); RED BLOOD COUNT 4.12 x10^6/uL (4.38-5.82); RED CELL DISTRIBUTION WIDTH 14.6 % (9.4-14.8)
[2019-02-17 06:13] LABS: BASOPHILS # (AUTO) 0.02 x10^3/uL (0-0.1); BASOPHILS % (AUTO) 0 % (0-1); EOSINOPHILS # (AUTO) 0.16 x10^3/uL (0-0.4); EOSINOPHILS % (AUTO) 3 % (1-7); LYMPHOCYTES # (AUTO) 1.72 x10^3/uL (1-3.4); LYMPHOCYTES % (AUTO) 32 % (22-44); MD SCAN; MONOCYTES # (AUTO) 0.58 x10^3/uL (0.2-0.8); MONOCYTES % (AUTO) 11 % (2-9); NEUTROPHILS # (AUTO) 2.91 x10^3/uL (1.8-6.8); NEUTROPHILS % (AUTO) 54 % (42-75)
[2019-02-17] MEDS: INSULIN LISPRO 100 UNITS/ML, PEN SQ-INSULIN SCH ×4 (07:35→21:00)
[2019-02-17] MEDS: LACTOBACILLUS CHEW TABLET PO SCH ×3 (07:36→21:00)
[2019-02-17] MEDS: ALLOPURINOL 300 MG TABLET PO SCH (07:36)
[2019-02-17 07:53] VITALS: BP 117/76
[2019-02-17] MEDS: SODIUM CHLORIDE 0.9% 1,000 ML IV SCH (11:18)
[2019-02-17] MEDS: ENOXAPARIN 60 MG/0.6 ML SQ SCH ×2 (11:18→21:54)
[2019-02-17 14:44] VITALS: BP 132/89
[2019-02-17 18:36] VITALS: BP 124/83
[2019-02-17] MEDS: ATORVASTATIN 80 MG TABLET PO SCH (21:36)
[2019-02-18 01:10] VITALS: BP 131/92
[2019-02-18] MEDS: CARVEDILOL 12.5 MG TABLET PO SCH ×2 (04:34→16:48)
[2019-02-18 06:13] LABS: BASOPHILS # (AUTO) 0.02 x10^3/uL (0-0.1); BASOPHILS % (AUTO) 0 % (0-1); EOSINOPHILS # (AUTO) 0.13 x10^3/uL (0-0.4); EOSINOPHILS % (AUTO) 3 % (1-7); LYMPHOCYTES # (AUTO) 1.52 x10^3/uL (1-3.4); LYMPHOCYTES % (AUTO) 30 % (22-44); MD NO; MEAN CORPUSCULAR HEMOGLOBIN 34.1 pg (27.5-34.5); MEAN CORPUSCULAR HGB CONC 32.6 g/dL (33.2-36.2); MEAN CORPUSCULAR VOLUME 104.5 fL (81-97); MEAN PLATELET VOLUME 8.6 fL (7.4-10.4); MONOCYTES # (AUTO) 0.49 x10^3/uL (0.2-0.8); MONOCYTES % (AUTO) 10 % (2-9); NEUTROPHILS # (AUTO) 2.97 x10^3/uL (1.8-6.8); NEUTROPHILS % (AUTO) 58 % (42-75); PLATELET COUNT 206 x10^3/uL (130-400); RED BLOOD COUNT 4.29 x10^6/uL (4.38-5.82); RED CELL DISTRIBUTION WIDTH 14.5 % (9.4-14.8)
[2019-02-18 06:24] LABS: ANION GAP 11 mmol/L (5-15); CALCIUM 8.5 mg/dL (8.5-10.1); CHLORIDE 110 mmol/L (98-107)
[2019-02-18 06:25] LABS: CREATININE 0.84 mg/dL (0.7-1.3)
[2019-02-18] MEDS: LACTOBACILLUS CHEW TABLET PO SCH ×3 (06:52→21:00)
[2019-02-18] MEDS: ALLOPURINOL 300 MG TABLET PO SCH (06:52)
[2019-02-18] MEDS: INSULIN LISPRO 100 UNITS/ML, PEN SQ-INSULIN SCH ×4 (07:00→21:00)
[2019-02-18 07:30] VITALS: BP 139/94
[2019-02-18] MEDS: SODIUM CHLORIDE 0.9% 1,000 ML IV SCH (07:37)
[2019-02-18] MEDS: ENOXAPARIN 60 MG/0.6 ML SQ SCH ×2 (11:28→22:00)
[2019-02-18 15:13] VITALS: BP 154/96
[2019-02-18 19:57] VITALS: BP 131/93
[2019-02-18] MEDS: ATORVASTATIN 80 MG TABLET PO SCH (21:00)
[2019-02-19 00:24] VITALS: BP 132/88
[2019-02-19] MEDS: SODIUM CHLORIDE 0.9% 1,000 ML IV SCH (03:51)
[2019-02-19] MEDS: CARVEDILOL 12.5 MG TABLET PO SCH ×2 (06:00→16:18)
[2019-02-19 06:37] VITALS: BP 123/89
[2019-02-19] MEDS: INSULIN LISPRO 100 UNITS/ML, PEN SQ-INSULIN SCH ×4 (07:00→21:00)
[2019-02-19] MEDS ORDERED: CEFAZOLIN PMX 2GM/100ML 100 ML IV ONE (07:00)
[2019-02-19] MEDS: ALLOPURINOL 300 MG TABLET PO SCH (07:04)
[2019-02-19] MEDS: LACTOBACILLUS CHEW TABLET PO SCH ×3 (07:04→21:30)
[2019-02-19] MEDS ORDERED: PROPOFOL 10 MG/ML, 20ML ONE (08:28)
[2019-02-19] MEDS ORDERED: ALBUTEROL/IPRATROPIUM 2.5MG/0.5MG, 3 ML NPPB PRN (08:30)
[2019-02-19] MEDS ORDERED: HYDROmorphone 2 MG/ML, 1ML IVPush PRN (08:30)
[2019-02-19] MEDS ORDERED: FENTANYL PF 100 MCG/2ML IV PRN (08:30)
[2019-02-19] MEDS ORDERED: ONDANSETRON 2MG/ML, 2ML IV PRN (08:30)
[2019-02-19] MEDS ORDERED: hydrALAzine 20 MG/ML, 1ML IV PRN (08:30)
[2019-02-19] MEDS ORDERED: MIDAZOLAM 1 MG/ML, 2ML IV PRN (08:30)
[2019-02-19] MEDS: ENOXAPARIN 60 MG/0.6 ML SQ SCH ×2 (10:00→21:30)
[2019-02-19 12:55] VITALS: BP 131/93
--- NOTE | 2019-02-19 13:00 | NUR ---
TF recommendation: Jevity 1.2 @ 50 ml/hr. START at 15 ml/hr, increase 10 ml/hr q8-10 hrs as tolerated. Addendum: 02/19/19 at [address] Amended: Links added.
[2019-02-19 18:42] VITALS: BP 116/81
[2019-02-19] MEDS: ATORVASTATIN 80 MG TABLET PO SCH (21:30)
[2019-02-20 00:35] VITALS: BP 145/100
[2019-02-20 05:07] LABS: CREATININE 0.78 mg/dL (0.7-1.3)
[2019-02-20 05:58] VITALS: BP 146/91
[2019-02-20] MEDS: SODIUM CHLORIDE 0.9% 1,000 ML IV SCH (06:01)
[2019-02-20] MEDS: CARVEDILOL 12.5 MG TABLET PO SCH ×2 (06:02→18:24)
[2019-02-20] MEDS: INSULIN LISPRO 100 UNITS/ML, PEN SQ-INSULIN SCH ×4 (07:00→21:00)
[2019-02-20 09:59] VITALS: BP 135/83
[2019-02-20] MEDS: LACTOBACILLUS CHEW TABLET PO SCH ×3 (10:24→20:32)
[2019-02-20] MEDS: ALLOPURINOL 300 MG TABLET PO SCH (10:49)
[2019-02-20 14:43] VITALS: BP 138/91
[2019-02-20] MEDS ORDERED: SODIUM CHLORIDE 0.9% 1,000 ML IV SCH (16:03)
[2019-02-20] MEDS ORDERED: RIVAROXABAN 20 MG TABLET PO SCH (17:00)
[2019-02-20 19:49] VITALS: BP 125/88
[2019-02-20] MEDS: ATORVASTATIN 80 MG TABLET PO SCH (20:32)
[2019-02-21 01:37] VITALS: BP 131/86
[2019-02-21 04:44] LABS: BASOPHILS # (AUTO) 0.02 x10^3/uL (0-0.1); BASOPHILS % (AUTO) 0 % (0-1); EOSINOPHILS # (AUTO) 0.12 x10^3/uL (0-0.4); EOSINOPHILS % (AUTO) 2 % (1-7); LYMPHOCYTES # (AUTO) 1.44 x10^3/uL (1-3.4); LYMPHOCYTES % (AUTO) 26 % (22-44); MD NO; MEAN CORPUSCULAR HEMOGLOBIN 34.1 pg (27.5-34.5); MEAN CORPUSCULAR HGB CONC 32.7 g/dL (33.2-36.2); MEAN CORPUSCULAR VOLUME 104.4 fL (81-97); MEAN PLATELET VOLUME 8.5 fL (7.4-10.4); MONOCYTES # (AUTO) 0.51 x10^3/uL (0.2-0.8); MONOCYTES % (AUTO) 9 % (2-9); NEUTROPHILS # (AUTO) 3.55 x10^3/uL (1.8-6.8); NEUTROPHILS % (AUTO) 63 % (42-75); PLATELET COUNT 210 x10^3/uL (130-400); RED BLOOD COUNT 4.15 x10^6/uL (4.38-5.82); RED CELL DISTRIBUTION WIDTH 14.9 % (9.4-14.8)
[2019-02-21] MEDS: CARVEDILOL 12.5 MG TABLET PO SCH (05:38)
[2019-02-21 06:09] VITALS: BP 108/72
[2019-02-21] MEDS ORDERED: BISACODYL 10 MG SUPP PR PRN (09:00)
[2019-02-21] MEDS: LACTOBACILLUS CHEW TABLET PO SCH (09:11)
[2019-02-21] MEDS: INSULIN LISPRO 100 UNITS/ML, PEN SQ-INSULIN SCH ×2 (09:11→11:30)
[2019-02-21] MEDS: ALLOPURINOL 300 MG TABLET PO SCH (09:12)
[2019-02-21] MEDS ORDERED: ACID1TAB7 PO (11:30)
[2019-02-21] MEDS ORDERED: INSU100I11 SQ-INSULIN (11:30)
[2019-02-21] MEDS ORDERED: CARV12.543 PO (11:30)
[2019-02-21 13:26] VITALS: BP 110/62
== END 2019-02-21 16:28 | DRG 392 ==
LOC: ED 16:14 → EDIP 16:37 → 3NE 17:32
PROVIDERS: ADMIT Hospitalist; ATTEND Hospitalist
PROC: 0DH63UZ Insertion of Feeding Device into Stomach, Percutaneous Approach (ICD-10-PCS; principal; 2019-02-19 08:30)
DX: R13.12 Dysphagia, oropharyngeal phase (principal); I69.351 Hemiplegia and hemiparesis following cerebral infarction affecting right dominant side; E11.9 Type 2 diabetes mellitus without complications; I10 Essential (primary) hypertension; M10.9 Gout, unspecified; R56.9 Unspecified convulsions; R62.7 Adult failure to thrive; Z79.01 Long term (current) use of anticoagulants; Z86.718 Personal history of other venous thrombosis and embolism; Z93.1 Gastrostomy status; Z90.49 Acquired absence of other specified parts of digestive tract
CPT/HCPCS: 36415; 71045; 74230; 80048; 80053; 81001; 82565; 82962; 83036; 83735; 84100; 84484; 85025; 85610; 93005; 99285; B4087; G0378; J1650; J1953; J2704; J0690; J1815; J7030

== ENCOUNTER 2019-04-01 19:44 | Inpatient (IN) | payer MEDICARE, MEDICAID ==
[~2019-04-01] VITALS: Ht 162.6 cm; Wt 65.0 kg
[2019-04-03 12:57] VITALS: BP 112/81
== END 2019-04-03 17:15 | DRG 312 ==
LOC: ED 20:06 → EDIP 22:20 → 4WST 23:29
PROVIDERS: ADMIT Family Medicine; ATTEND Family Medicine
PROC: 0T9B70Z Drainage of Bladder with Drainage Device, Via Natural or Artificial Opening (ICD-10-PCS; principal; 2019-04-01)
DX: I95.2 Hypotension due to drugs (principal); I69.351 Hemiplegia and hemiparesis following cerebral infarction affecting right dominant side; I10 Essential (primary) hypertension; R62.7 Adult failure to thrive; R13.10 Dysphagia, unspecified; E86.0 Dehydration; E11.9 Type 2 diabetes mellitus without complications; Z93.1 Gastrostomy status; Z86.718 Personal history of other venous thrombosis and embolism; Z82.49 Family history of ischemic heart disease and other diseases of the circulatory system; Z79.4 Long term (current) use of insulin
CPT/HCPCS: 36415; 71045; 80048; 80053; 81003; 82962; 83735; 84145; 85025; 93005; 99291; G0378; J1815; J7030